=== PATIENT | male | born 1985 | race African-American/Black ===

== ENCOUNTER 2019-09-01 05:55 | Emergency (ER) | payer OTHER ==
[~2019-09-01] VITALS: Ht 185.4 cm; Wt 95.3 kg
[2019-09-01] MEDS ORDERED: ACYCLOVIR 400400 MG PO (06:16)
[2019-09-01] MEDS ORDERED: HYDROCODON-ACE1 EAC8 PO (06:16)
[2019-09-01] MEDS ORDERED: LIDOCAINE VISC100 ML SWISH&SPIT (06:18)
[2019-09-01 06:41] VITALS: BP 148/72
== END 2019-09-01 06:43 | disposition home or self-care (01) ==
LOC: M.ERS 05:55
DX: K12.0 Recurrent oral aphthae (principal)